=== PATIENT | female | born 1950 | race Caucasian/White ===

== ENCOUNTER 2016-11-21 20:14 | Inpatient (IN) ==
[2016-11-21] MEDS ORDERED: Acetaminophen 325 MG TABLET PO PRN (23:01)
[2016-11-21] MEDS ORDERED: Loratadine 10 MG TABLET PO PRN (23:01)
[2016-11-21] MEDS ORDERED: LOPERAMIDE HCL 2 MG PO PRN (23:01)
[2016-11-21] MEDS ORDERED: Fluticasone Propionate Nasal 50 MCG/SPRAY BOTTLE NS PRN (23:01)
[2016-11-22] MEDS: *HR* HYDROcodone/Acet 5/325 mg TABLET PO PRN ×2 (01:08→10:20)
[2016-11-22] MEDS ORDERED: Gabapentin 300 MG CAPSULE PO ONE (03:23)
[2016-11-22] MEDS ORDERED: Gabapentin 300 MG CAPSULE PO SCH (09:00)
[2016-11-22] MEDS ORDERED: Metoprolol XL (24 HR) Succ 25 MG TAB.ER.24H PO SCH (09:00)
[2016-11-22] MEDS: Multivit/Ca/Min/Fe/FA 1 TAB TABLET PO SCH (10:20)
[2016-11-22] MEDS: Ascorbic Acid 500 MG TABLET PO SCH (10:20)
[2016-11-22] MEDS: Venlafaxine XR (24 HR) 150 MG CAP.ER.24H PO SCH (10:20)
[2016-11-22] MEDS: *HR* Pioglitazone 15 MG TABLET PO SCH (10:21)
[2016-11-22] MEDS: *HR* Metformin 500 MG TABLET PO SCH ×3 (10:21→17:19)
[2016-11-22] MEDS: *HR* Rivaroxaban 15 MG TABLET PO SCH ×2 (10:21→21:56)
[2016-11-22] MEDS: Magnesium Oxide 400 MG TABLET PO SCH (10:21)
[2016-11-22] MEDS: Vitamin B Complex/Vit C/Vit E 1 EACH TABLET PO SCH (10:21)
[2016-11-22] MEDS: GuaiFENesin/Dextromethorphan TABLET PO PRN (10:33)
[2016-11-22] MEDS: Diltiazem CD (24hr) 120 MG CAPSULE PO SCH (13:29)
--- NOTE | 2016-11-22 15:04 | Internal Med History&Physical ---
Date of Encounter: 11/22/16 Time of Encounter: 14:25 Assessment and Plan (1) Atrial flutter Current visit: No Status: Acute Now converted to normal sinus rhythm. Will continue with Cardizem and Xarelto but increase metoprolol. Qualifiers: Atrial flutter type: unspecified Qualified Code(s): I48.92 - Unspecified atrial flutter (2) Type 2 diabetes mellitus Current visit: No Status: Chronic Hemoglobin A1c was 6.2% on 10/31/2016. Continue Actos, Glucophage, Levemir, and Cozaar. Qualifiers: Diabetes mellitus complication status: with neurologic complications Diabetes mellitus complication detail: with polyneuropathy Diabetes mellitus terminal operations manager insulin use: with terminal operations manager use Qualified Code(s): E11.42 - Type 2 diabetes mellitus with diabetic polyneuropathy; Z79.4 - meterman (current) use of insulin (3) Pulmonary embolism Current visit: No Status: Acute Continue Xarelto Qualifiers: Pulmonary embolism type: other Chronicity: acute Acute cor pulmonale presence: without acute cor pulmonale Qualified Code(s): I26.99 - Other pulmonary embolism without acute cor pulmonale (4) Anemia Current visit: No Status: Chronic Anemia workup October 2016 showed iron deficiency. Will recheck iron profile in a.m. Qualifiers: Anemia type: iron deficiency Iron deficiency anemia type: unspecified iron deficiency Qualified Code(s): D50.9 - Iron deficiency anemia, unspecified Internal Medicine - H&P: HPI Chief complaint: Falls, atrial flutter Admitted From: Hospital to Hospital Transfer Plans for Post Hospital Care: Home History of present illness: Ms. Paris is a 66 year old female who was transferred to [facility] swing bed following her third admission at [facility] in the last month. She had had recurrent atrial flutter with RVR and had a fall at home. She was stabilized and admitted to [facility] swing bed for rehabilitation therapy prior to returning home. Her cardiovascular history is significant for hypertension. She denies MT or heart failure. An echocardiogram done during her initial [facility] hospitalization showed LVEF of 60%. She had pulmonary embolism documented on her initial stay and is now on Xarelto. Past Med Surg Social Fam HX - Past Medical History Medical history: arthritis, diabetes, GERD, hypertension, other Psychiatric history: anxiety, depression - Past Surgical History Surgical History: appendectomy, sinus surgery, bariatric surgery - Social History Smoking Status: Never smoker Smokeless Tobacco Status: No Alcohol use: none Drug use: none - Family History Mother Living Status: Hx Family Neurologic Disorders: Yes (Migraines) Hx Family Autoimmune Disorders: Yes (MS) Sister Hx Family Cancer: Yes Hx Family Autoimmune Disorders: Yes (Lupus) Father Living Status: Hx Family Cancer: Yes Hx Family Endocrine Disorder: Yes (diabetes) Internal Medicine - H&P: Meds Acetaminophen [Tylenol Arthritis] 1,300 mg PO Q8H PRN 10/31/16 [History] Cetirizine HCl [Zyrtec] 10 mg PO DAILY PRN 10/31/16 [History] Citalopram [CeleXA] 20 mg PO DAILY 10/31/16 [History] Diclofenac Sodium [Voltaren] 75 mg PO BID 10/31/16 [History] Esomeprazole Magnesium [Nexium] 40 mg PO DAILY 10/31/16 [History] Fluticasone Propionate Nasal [Flonase] 50 mcg NS DAILY PRN 10/31/16 [History] GuaiFENesin/Dextromethorphan [Mucinex Dm] 1 each PO BID PRN 10/31/16 [History] Loperamide HCl [Imodium A-D] 2 mg PO PER PKG DI PRN 10/31/16 [History] Losartan Potassium [Cozaar] 50 mg PO DAILY 10/31/16 [History] Magnesium 250 mg PO DAILY 10/31/16 [History] Multivitamin [Multi-Day Vitamins] 1 each PO DAILY 10/31/16 [History] Pioglitazone [Actos] 45 mg PO 0800 10/31/16 [History] Venlafaxine XR (24 HR) [Effexor Xr] 300 mg PO QAM 10/31/16 [History] Vitamin B Complex 1 each PO DAILY 10/31/16 [History] metFORMIN [Glucophage] 500 mg PO TIDWM 10/31/16 [History] Ascorbic Acid [Vitamin C] 500 mg PO DAILY #30 tablet 11/04/16 [Rx] Ferrous Sulfate 325 mg PO BIDWM #60 tablet 11/04/16 [Rx] Insulin Glargine,Hum.rec.anlog [Lantus Solostar] 50 unit SQ HS #0 11/04/16 [Rx] Diltiazem CD (24hr) [Cardizem CD] 120 mg PO DAILY 30 Days 11/18/16 [Rx] Gabapentin [Neurontin] 300 mg PO BID #30 capsule 11/21/16 [Rx] HYDROcodone/Acet 5/325 mg [[place] 5-325 mg] 1 tab PO Q6H PRN #14 tablet 11/21/16 [Rx] Metoprolol XL (24 HR) Succ [Toprol Xl] 25 mg PO DAILY #30 tab.er.24h 11/21/16 [ Rx] Rivaroxaban [Xarelto] 15 mg PO BID #0 tablet 11/21/16 [Rx] Rivaroxaban [Xarelto] 20 mg PO DAILY #30 tablet 11/21/16 [Rx] Allergies Penicillins Adverse Reaction (Verified 10/31/16 14:05) Gastrointestinal Upset shellfish derived Adverse Reaction (Verified 10/31/16 14:05) Headache Tetracyclines Adverse Reaction (Verified 10/31/16 14:05) Rash All Systems PM: A 10-system review of systems was performed and is negative for pertinent findings except as documented above in the HPI. Review of systems: Gen.: She states her weight has fluctuated depending on fluid retention with her usual adult weight approximately 340 pounds. Cardiovascular: As per history of present illness Respiratory: She is a lifelong nonsmoker. She is been diagnosed with chronic bronchitis. She has been diagnosed with sleep apnea but states it is not benefited by CPAP. GI: She has GERD but denies disorders of her liver gallbladder or exocrine pancreas. She had gastric stapling surgery in the past with weight loss approximately 35 pounds. 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 She has diagnoses of tremor. She has diabetic peripheral neuropathy. She denies large distribution strokes or seizures Endocrine: She was diagnosed with DM 2 approximately 20 years ago. She denies thyroid disease or hyperlipidemia Hematology/oncology: She has iron deficiency anemia and is now on ferrous sulfate with vitamin C. She denies internal malignancies or other blood disorders Psychiatric: She has diagnoses of anxiety depression and dysphoria. [place] skeletal: She has DJD. She has been receiving Synvisc injections into her knees. She denies other bone joint or muscle disorders. - Constitutional Vitals: Temp Pulse Resp BP Pulse Ox 98.5 F 84 14 147/75 99 11/22/16 06:10 11/22/16 14:35 11/22/16 14:35 11/22/16 14:35 11/22/16 14:35 Exam: Gen.: She is a well-developed morbidly obese female lying in bed who appears in no severe distress HEENT: Head is atraumatic and normocephalic. Eyes: EOMI. There is no scleral icterus. Mouth: Mucosa is moist. Neck: Supple and nontender. There is no thyromegaly or adenopathy noted. Heart: Regular without murmurs gallops or ectopics Lungs: No wheezes or crackles are heard. Abdomen: She has a large abdomen. There is a well-healed midline longitudinal incision. No masses or guarding are noted. She has ecchymosis of the lower abdominal wall. Extremities: She has 1-2+ edema of the dorsum of the feet. She has marked adiposity of her legs. Dorsalis pedis and posterior tibial pulses are not palpable. Neurologic: Mental status: She is talkative and a good historian. Cranial nerves: Smile is symmetric. Forehead wrinkles bilaterally. Tongue protrudes midline. EOMI. Motor: There is no pronator drift. Cerebellar: Finger to nose is intact bilaterally. Skin: Warm and dry
[2016-11-22] MEDS ORDERED: Insulin DETEMIR 100 UNIT/ML per UNIT SQ SCH (21:00)
[2016-11-22] MEDS ORDERED: Insulin DETEMIR 100 UNIT/ML X5UNITS SQ SCH (21:00)
[2016-11-22] MEDS: *HR* HYDROcodone/Acet 10/325 mg TABLET PO PRN (21:56)
[2016-11-23] MEDS: *HR* HYDROcodone/Acet 10/325 mg TABLET PO PRN ×4 (03:02→17:24)
[2016-11-23 07:51] LABS: Basophils # 0.1 K/mcL (0.0-0.2); Basophils % 1.2 %; Eosinophils # 0.2 K/mcL (0.0-0.6); Eosinophils % 5.6 %; Hematocrit 29.5 % (35.3-44.9); Hemoglobin 8.6 g/dL (11.5-15.4); Immature Granulocytes % 0.2 % (0-4); Lymphocytes # 1.2 K/mcL (0.6-4.6); Lymphocytes % 28.3 %; Mean Corpuscular HGB Conc 29.2 g/dL (31.6-35.5); Mean Corpuscular Volume 85.8 fL (83.0-100.0); Mean Platelet Volume 9.4 fL (9.4-12.4); Monocytes # 0.5 K/mcL (0.0-1.3); Monocytes % 11.8 %; Neutrophils # 2.3 K/mcL (1.6-8.9); Platelet Count 318 K/mcL (140-400); Red Blood Count 3.44 M/mcL (3.82-4.97); Red Cell Distribution Width 24.1 % (11.5-14.5); Segmented Neutrophils % 52.9 %
[2016-11-23] MEDS: Ascorbic Acid 500 MG TABLET PO SCH (08:05)
[2016-11-23] MEDS: Vitamin B Complex/Vit C/Vit E 1 EACH TABLET PO SCH (08:06)
[2016-11-23] MEDS: Diltiazem CD (24hr) 120 MG CAPSULE PO SCH (08:06)
[2016-11-23] MEDS: Magnesium Oxide 400 MG TABLET PO SCH (08:06)
[2016-11-23] MEDS: *HR* Metformin 500 MG TABLET PO SCH ×3 (08:06→17:24)
[2016-11-23] MEDS: *HR* Rivaroxaban 15 MG TABLET PO SCH ×2 (08:06→20:11)
[2016-11-23] MEDS: *HR* Pioglitazone 15 MG TABLET PO SCH (08:07)
[2016-11-23] MEDS: Metoprolol XL (24 HR) Succ 25 MG TAB.ER.24H PO SCH (08:07)
[2016-11-23] MEDS: Venlafaxine XR (24 HR) 150 MG CAP.ER.24H PO SCH (08:07)
[2016-11-23] MEDS: GuaiFENesin/Dextromethorphan TABLET PO PRN ×2 (08:13→20:24)
[2016-11-23] MEDS: Multivit/Ca/Min/Fe/FA 1 TAB TABLET PO SCH (08:13)
[2016-11-23 08:44] LABS: Anisocytosis 1+ (Not Present); Hypochromasia Present (Not Present); Polychromasia 1+ (Not Present)
[2016-11-23 13:31] LABS: % Iron Saturation 11 % (15-50); Iron 43 mcg/dL (50-170); Transferrin 287 mg/dL (180-382)
[2016-11-23 13:51] LABS: Ferritin 60 ng/ml (5-204)
--- NOTE | 2016-11-23 17:38 | Internal Med Progress Note ---
Date of Encounter: 11/23/16 Time of Encounter: 17:30 - Assessment and plan (1) Atrial flutter Current Visit: No Status: Acute Assessment and plan: November 23. Continue Cardizem, metoprolol, and Xarelto Qualifiers: Atrial flutter type: unspecified Qualified Code(s): I48.92 - Unspecified atrial flutter (2) Type 2 diabetes mellitus Current Visit: No Status: Chronic Assessment and plan: November 23. Hemoglobin A1c was 6.2% on 10/31/2016. Continue Actos, Glucophage, Levemir, and Cozaar. Qualifiers: Diabetes mellitus complication status: with neurologic complications Diabetes mellitus complication detail: with polyneuropathy Diabetes mellitus buttermilk drier operator insulin use: with buttermilk drier operator use Qualified Code(s): E11.42 - Type 2 diabetes mellitus with diabetic polyneuropathy; Z79.4 - assistant terminal manager (current) use of insulin (3) Pulmonary embolism Current Visit: No Status: Acute Assessment and plan: November 23. Continue Xarelto Qualifiers: Pulmonary embolism type: other Chronicity: acute Acute cor pulmonale presence: without acute cor pulmonale Qualified Code(s): I26.99 - Other pulmonary embolism without acute cor pulmonale (4) Anemia Current Visit: No Status: Chronic Assessment and plan: November 23. Improved from November 12 labs. Continue ferrous sulfate with vitamin C. Qualifiers: Anemia type: iron deficiency Iron deficiency anemia type: unspecified iron deficiency Qualified Code(s): D50.9 - Iron deficiency anemia, unspecified - Subjective Interval history: November 23. She has no new complaints except she felt she was left sitting in a low chair excessively long today. - Constitutional Vitals: Temp Pulse Resp BP Pulse Ox 98.0 F 77 16 158/76 98 11/23/16 06:55 11/23/16 06:55 11/23/16 06:55 11/23/16 06:55 11/23/16 06:55 Exam: She is resting comfortably in bed appears in no acute distress. Her affect was overall cheerful. I reviewed her medications and lab results. Internal Medicine: Result - Labs CBC & Chem 7: 11/23/16 07:45 Labs: Short CBC 11/23/16 Range/Units 07:45 WBC 4.3 (4.3-11.1) K/mcL Hgb 8.6 L (11.5-15.4) g/dL Hct 29.5 L (35.3-44.9) % Plt Count 318 (140-400) K/mcL Neutrophils # 2.3 (1.6-8.9) K/mcL Consult Discharge Plan - Plan Referrals: Agustin Whatley MD [Primary Care Provider] - 1 week
[2016-11-23] MEDS: Insulin DETEMIR 100 UNIT/ML X5UNITS SQ SCH (20:11)
[2016-11-24] MEDS: *HR* HYDROcodone/Acet 10/325 mg TABLET PO PRN ×3 (01:30→18:08)
[2016-11-24] MEDS: *HR* Pioglitazone 15 MG TABLET PO SCH ×2 (07:53→12:20)
[2016-11-24] MEDS: Venlafaxine XR (24 HR) 150 MG CAP.ER.24H PO SCH (07:55)
[2016-11-24] MEDS: Multivit/Ca/Min/Fe/FA 1 TAB TABLET PO SCH (07:56)
[2016-11-24] MEDS: Ascorbic Acid 500 MG TABLET PO SCH (07:56)
[2016-11-24] MEDS: Magnesium Oxide 400 MG TABLET PO SCH (07:56)
[2016-11-24] MEDS: Vitamin B Complex/Vit C/Vit E 1 EACH TABLET PO SCH (07:56)
[2016-11-24] MEDS: *HR* Metformin 500 MG TABLET PO SCH ×3 (07:56→18:06)
[2016-11-24] MEDS: Diltiazem CD (24hr) 120 MG CAPSULE PO SCH (07:56)
[2016-11-24] MEDS: Metoprolol XL (24 HR) Succ 25 MG TAB.ER.24H PO SCH (07:56)
[2016-11-24] MEDS: *HR* Rivaroxaban 15 MG TABLET PO SCH ×2 (07:57→21:47)
[2016-11-24] MEDS: Insulin DETEMIR 100 UNIT/ML X5UNITS SQ SCH (21:46)
[2016-11-25] MEDS: *HR* HYDROcodone/Acet 10/325 mg TABLET PO PRN ×3 (00:25→22:00)
[2016-11-25] MEDS: *HR* Pioglitazone 15 MG TABLET PO SCH (09:12)
[2016-11-25] MEDS: Diltiazem CD (24hr) 120 MG CAPSULE PO SCH (09:14)
[2016-11-25] MEDS: *HR* Metformin 500 MG TABLET PO SCH ×3 (09:14→17:11)
[2016-11-25] MEDS: Venlafaxine XR (24 HR) 150 MG CAP.ER.24H PO SCH (09:15)
[2016-11-25] MEDS: Vitamin B Complex/Vit C/Vit E 1 EACH TABLET PO SCH (09:16)
[2016-11-25] MEDS: Multivit/Ca/Min/Fe/FA 1 TAB TABLET PO SCH (09:16)
[2016-11-25] MEDS: Magnesium Oxide 400 MG TABLET PO SCH (09:16)
[2016-11-25] MEDS: Metoprolol XL (24 HR) Succ 25 MG TAB.ER.24H PO SCH (09:17)
[2016-11-25] MEDS: Ascorbic Acid 500 MG TABLET PO SCH (09:17)
[2016-11-25] MEDS: *HR* Rivaroxaban 15 MG TABLET PO SCH (09:17)
[2016-11-25] MEDS: Insulin DETEMIR 100 UNIT/ML X5UNITS SQ SCH (21:59)
[2016-11-26] MEDS: *HR* HYDROcodone/Acet 10/325 mg TABLET PO PRN ×2 (02:13→06:33)
[2016-11-26] MEDS: Diltiazem CD (24hr) 120 MG CAPSULE PO SCH (08:40)
[2016-11-26] MEDS: *HR* Pioglitazone 15 MG TABLET PO SCH (08:40)
[2016-11-26] MEDS: Metoprolol XL (24 HR) Succ 25 MG TAB.ER.24H PO SCH (08:40)
[2016-11-26] MEDS: Ascorbic Acid 500 MG TABLET PO SCH (08:40)
[2016-11-26] MEDS: Venlafaxine XR (24 HR) 150 MG CAP.ER.24H PO SCH (08:40)
[2016-11-26] MEDS: *HR* Metformin 500 MG TABLET PO SCH ×3 (08:40→17:49)
[2016-11-26] MEDS: *HR* Rivaroxaban 10 MG TABLET PO SCH (08:40)
[2016-11-26] MEDS: Vitamin B Complex/Vit C/Vit E 1 EACH TABLET PO SCH (08:40)
[2016-11-26] MEDS: Magnesium Oxide 400 MG TABLET PO SCH (08:40)
[2016-11-26] MEDS: Multivit/Ca/Min/Fe/FA 1 TAB TABLET PO SCH (08:40)
--- NOTE | 2016-11-26 11:19 | Internal Med Progress Note ---
Date of Encounter: 11/26/16 Time of Encounter: 10:20 - Assessment and plan (1) Atrial flutter Current Visit: No Status: Acute Assessment and plan: November 23. Continue Cardizem, metoprolol, and Xarelto Qualifiers: Atrial flutter type: unspecified Qualified Code(s): I48.92 - Unspecified atrial flutter (2) Type 2 diabetes mellitus Current Visit: No Status: Chronic Assessment and plan: November 23. Hemoglobin A1c was 6.2% on 10/31/2016. Continue Actos, Glucophage, Levemir, and Cozaar. November 26. Blood sugars are satisfactory. Continue present regimen Qualifiers: Diabetes mellitus complication status: with neurologic complications Diabetes mellitus complication detail: with polyneuropathy Diabetes mellitus terminal superintendent insulin use: with custodial use Qualified Code(s): E11.42 - Type 2 diabetes mellitus with diabetic polyneuropathy; Z79.4 - terminal superintendent (current) use of insulin (3) Pulmonary embolism Current Visit: No Status: Acute Assessment and plan: November 23. Continue Xarelto Qualifiers: Pulmonary embolism type: other Chronicity: acute Acute cor pulmonale presence: without acute cor pulmonale Qualified Code(s): I26.99 - Other pulmonary embolism without acute cor pulmonale (4) Anemia Current Visit: No Status: Chronic Assessment and plan: November 23. Improved from November 12 labs. Continue ferrous sulfate with vitamin C. Qualifiers: Anemia type: iron deficiency Iron deficiency anemia type: unspecified iron deficiency Qualified Code(s): D50.9 - Iron deficiency anemia, unspecified (5) Leg cramps Current Visit: Yes Status: Acute Assessment and plan: November 26. Will decrease [place] and prescribe Lyrica. Continue ferrous sulfate with vitamin C. - Subjective Interval history: November 23. She has no new complaints except she felt she was left sitting in a low chair excessively long today. November 26. She complains of leg cramps and occasional jerking of her arms. She reported she desires more specific goals for therapy on a daily basis. She inquired about mental health counseling. - Constitutional Vitals: Temp Pulse Resp BP Pulse Ox 97.8 F 80 22 124/63 95 11/26/16 06:35 11/26/16 06:35 11/26/16 06:35 11/26/16 06:35 11/26/16 06:35 Exam: She appears in no acute distress lying in bed. Her affect is overall bright and cheerful. I reviewed her medications and lab results Internal Medicine: Result - Labs CBC & Chem 7: 11/23/16 07:45 Consult Discharge Plan - Plan Referrals: Agustin Whatley MD [Primary Care Provider] - 1 week
[2016-11-26] MEDS ORDERED: Acetaminophen 325 MG TABLET PO PRN (11:28)
[2016-11-26] MEDS: *HR* HYDROcodone/Acet 5/325 mg TABLET PO PRN ×2 (14:34→22:15)
[2016-11-26] MEDS: Pregabalin 50 MG CAPSULE PO SCH ×2 (14:35→20:38)
[2016-11-26] MEDS: Insulin DETEMIR 100 UNIT/ML X5UNITS SQ SCH (20:38)
[2016-11-26] MEDS: GuaiFENesin/Dextromethorphan TABLET PO PRN (20:44)
[2016-11-27] MEDS: *HR* HYDROcodone/Acet 5/325 mg TABLET PO PRN ×4 (05:08→21:28)
[2016-11-27 05:29] LABS: Basophils % 1.2 %; Eosinophils # 0.2 K/mcL (0.0-0.6); Eosinophils % 5.5 %; Hemoglobin 8.3 g/dL (11.5-15.4); Immature Granulocytes % 0.3 % (0-4); Lymphocytes # 0.8 K/mcL (0.6-4.6); Lymphocytes % 23.5 %; Mean Corpuscular HGB Conc 28.6 g/dL (31.6-35.5); Mean Corpuscular Volume 87.3 fL (83.0-100.0); Mean Platelet Volume 10.3 fL (9.4-12.4); Monocytes # 0.5 K/mcL (0.0-1.3); Monocytes % 14.5 %; Neutrophils # 1.9 K/mcL (1.6-8.9); Platelet Count 244 K/mcL (140-400); Red Blood Count 3.32 M/mcL (3.82-4.97); Red Cell Distribution Width 23.8 % (11.5-14.5)
[2016-11-27 05:47] LABS: BUN/Creatinine Ratio 26 (6-26); Blood Urea Nitrogen 18 mg/dL (7-20); Calcium 9.3 mg/dL (8.6-10.8); Carbon Dioxide 29 mEq/L (19-29); Chloride 96 mEq/L (98-109); Glucose 117 mg/dL (70-99); Magnesium 1.5 mg/dL (1.6-2.6); Osmolality,Calculated 281 (280-300); Potassium 4.5 mEq/L (3.5-4.5); Sodium 134 mEq/L (136-145); eGFR For African Americans > 60 (> 60); eGFR For Non-African Americans > 60 (> 60)
[2016-11-27 06:44] LABS: Anisocytosis 1+ (Not Present); Hypochromasia Present (Not Present); Platelet Estimate Normal (Normal)
[2016-11-27] MEDS: *HR* Rivaroxaban 10 MG TABLET PO SCH ×2 (10:01→17:44)
[2016-11-27] MEDS: *HR* Pioglitazone 15 MG TABLET PO SCH (10:11)
[2016-11-27] MEDS: *HR* Metformin 500 MG TABLET PO SCH ×3 (10:12→17:44)
[2016-11-27] MEDS: Magnesium Oxide 400 MG TABLET PO SCH (10:12)
[2016-11-27] MEDS: Multivit/Ca/Min/Fe/FA 1 TAB TABLET PO SCH (10:12)
[2016-11-27] MEDS: Diltiazem CD (24hr) 120 MG CAPSULE PO SCH (10:12)
[2016-11-27] MEDS: Venlafaxine XR (24 HR) 150 MG CAP.ER.24H PO SCH (10:12)
[2016-11-27] MEDS: Vitamin B Complex/Vit C/Vit E 1 EACH TABLET PO SCH (10:13)
[2016-11-27] MEDS: Ascorbic Acid 500 MG TABLET PO SCH (10:13)
[2016-11-27] MEDS: Metoprolol XL (24 HR) Succ 25 MG TAB.ER.24H PO SCH (10:13)
[2016-11-27] MEDS: Pregabalin 50 MG CAPSULE PO SCH (10:13)
[2016-11-27] MEDS: GuaiFENesin/Dextromethorphan TABLET PO PRN ×2 (10:20→20:36)
[2016-11-27] MEDS ORDERED: *HR* HYDROcodone/Acet 5/325 mg TABLET PO PRN (18:50)
[2016-11-27] MEDS: Gabapentin 300 MG CAPSULE PO SCH (20:36)
[2016-11-27] MEDS: Insulin DETEMIR 100 UNIT/ML X5UNITS SQ SCH (20:36)
[2016-11-28] MEDS: *HR* HYDROcodone/Acet 5/325 mg TABLET PO PRN ×5 (04:01→21:07)
[2016-11-28] MEDS: *HR* Pioglitazone 15 MG TABLET PO SCH (09:14)
[2016-11-28] MEDS: Ascorbic Acid 500 MG TABLET PO SCH (09:15)
[2016-11-28] MEDS: Vitamin B Complex/Vit C/Vit E 1 EACH TABLET PO SCH (09:15)
[2016-11-28] MEDS: Multivit/Ca/Min/Fe/FA 1 TAB TABLET PO SCH (09:15)
[2016-11-28] MEDS: GuaiFENesin/Dextromethorphan TABLET PO PRN ×2 (09:15→21:07)
[2016-11-28] MEDS: Magnesium Oxide 400 MG TABLET PO SCH (09:15)
[2016-11-28] MEDS: Gabapentin 300 MG CAPSULE PO SCH ×2 (09:16→21:04)
[2016-11-28] MEDS: *HR* Metformin 500 MG TABLET PO SCH ×3 (09:16→17:32)
[2016-11-28] MEDS: Venlafaxine XR (24 HR) 150 MG CAP.ER.24H PO SCH (09:16)
[2016-11-28] MEDS: Diltiazem CD (24hr) 120 MG CAPSULE PO SCH (09:16)
[2016-11-28] MEDS: Metoprolol XL (24 HR) Succ 25 MG TAB.ER.24H PO SCH (09:16)
--- NOTE | 2016-11-28 15:22 | Internal Med Progress Note ---
Date of Encounter: 11/28/16 Time of Encounter: 15:10 - Assessment and plan (1) Atrial flutter Current Visit: No Status: Acute Assessment and plan: November 23. Continue Cardizem, metoprolol, and Xarelto Qualifiers: Atrial flutter type: unspecified Qualified Code(s): I48.92 - Unspecified atrial flutter (2) Type 2 diabetes mellitus Current Visit: No Status: Chronic Assessment and plan: November 23. Hemoglobin A1c was 6.2% on 10/31/2016. Continue Actos, Glucophage, Levemir, and Cozaar. November 26. Blood sugars are satisfactory. Continue present regimen Qualifiers: Diabetes mellitus complication status: with neurologic complications Diabetes mellitus complication detail: with polyneuropathy Diabetes mellitus manager long term care insulin use: with manager long term care use Qualified Code(s): E11.42 - Type 2 diabetes mellitus with diabetic polyneuropathy; Z79.4 - exterminator helper (current) use of insulin (3) Pulmonary embolism Current Visit: No Status: Acute Assessment and plan: November 23. Continue Xarelto Qualifiers: Pulmonary embolism type: other Chronicity: acute Acute cor pulmonale presence: without acute cor pulmonale Qualified Code(s): I26.99 - Other pulmonary embolism without acute cor pulmonale (4) Anemia Current Visit: No Status: Chronic Assessment and plan: November 23. Improved from November 12 labs. Continue ferrous sulfate with vitamin C. November 28. Hemoglobin decreased slightly to 8.3 on 11/27/2016. Continue to monitor CBC Qualifiers: Anemia type: iron deficiency Iron deficiency anemia type: unspecified iron deficiency Qualified Code(s): D50.9 - Iron deficiency anemia, unspecified (5) Leg cramps Current Visit: Yes Status: Acute Assessment and plan: November 26. Will decrease [place] and prescribe Lyrica. Continue ferrous sulfate with vitamin C. November 28. She did not tolerate decreased [place]. She wished to change from Lyrica to Neurontin. We will continue present regimen. - Subjective Interval history: November 23. She has no new complaints except she felt she was left sitting in a low chair excessively long today. November 26. She complains of leg cramps and occasional jerking of her arms. She reported she desires more specific goals for therapy on a daily basis. She inquired about mental health counseling. November 28. She reports decreased legs cramp and arm jerking. She will see Dr. Butt this afternoon for Synvisc injection - Constitutional Vitals: Temp Pulse Resp BP Pulse Ox 97.6 F 78 18 141/59 92 11/28/16 06:30 11/28/16 06:30 11/28/16 06:30 11/28/16 06:30 11/28/16 06:30 Exam: She is resting in bed and appears in no acute distress. I reviewed her medications and lab results. Internal Medicine: Result - Labs CBC & Chem 7: 11/27/16 04:57 11/27/16 04:57 Consult Discharge Plan - Plan Referrals: Agustin Whatley MD [Primary Care Provider] - 1 week (Patient also needs a follow up appointment made with core manager the first week of December.)
[2016-11-28] MEDS: *HR* Rivaroxaban 10 MG TABLET PO SCH (17:32)
[2016-11-28] MEDS: Insulin DETEMIR 100 UNIT/ML X5UNITS SQ SCH (21:07)
[2016-11-29] MEDS: *HR* HYDROcodone/Acet 5/325 mg TABLET PO PRN ×4 (01:33→21:49)
[2016-11-29] MEDS: Venlafaxine XR (24 HR) 150 MG CAP.ER.24H PO SCH (08:13)
[2016-11-29] MEDS: *HR* Pioglitazone 15 MG TABLET PO SCH (08:13)
[2016-11-29] MEDS: Magnesium Oxide 400 MG TABLET PO SCH (08:14)
[2016-11-29] MEDS: Ascorbic Acid 500 MG TABLET PO SCH (08:14)
[2016-11-29] MEDS: Multivit/Ca/Min/Fe/FA 1 TAB TABLET PO SCH (08:14)
[2016-11-29] MEDS: Vitamin B Complex/Vit C/Vit E 1 EACH TABLET PO SCH (08:14)
[2016-11-29] MEDS: Metoprolol XL (24 HR) Succ 25 MG TAB.ER.24H PO SCH (08:14)
[2016-11-29] MEDS: *HR* Metformin 500 MG TABLET PO SCH ×3 (08:14→17:42)
[2016-11-29] MEDS: Gabapentin 300 MG CAPSULE PO SCH ×2 (08:14→21:49)
[2016-11-29] MEDS: Diltiazem CD (24hr) 120 MG CAPSULE PO SCH (08:15)
[2016-11-29] MEDS: GuaiFENesin/Dextromethorphan TABLET PO PRN ×2 (08:21→21:37)
--- NOTE | 2016-11-29 14:33 | Internal Med Progress Note ---
Date of Encounter: 11/29/16 Time of Encounter: 14:15 - Assessment and plan (1) Atrial flutter Current Visit: No Status: Acute Assessment and plan: November 23. Continue Cardizem, metoprolol, and Xarelto Qualifiers: Atrial flutter type: unspecified Qualified Code(s): I48.92 - Unspecified atrial flutter (2) Type 2 diabetes mellitus Current Visit: No Status: Chronic Assessment and plan: November 23. Hemoglobin A1c was 6.2% on 10/31/2016. Continue Actos, Glucophage, Levemir, and Cozaar. November 26. Blood sugars are satisfactory. Continue present regimen Qualifiers: Diabetes mellitus complication status: with neurologic complications Diabetes mellitus complication detail: with polyneuropathy Diabetes mellitus terminal press operator insulin use: with nursing home use Qualified Code(s): E11.42 - Type 2 diabetes mellitus with diabetic polyneuropathy; Z79.4 - emt intermediate (current) use of insulin (3) Pulmonary embolism Current Visit: No Status: Acute Assessment and plan: November 23. Continue Xarelto Qualifiers: Pulmonary embolism type: other Chronicity: acute Acute cor pulmonale presence: without acute cor pulmonale Qualified Code(s): I26.99 - Other pulmonary embolism without acute cor pulmonale (4) Anemia Current Visit: No Status: Chronic Assessment and plan: November 23. Improved from November 12 labs. Continue ferrous sulfate with vitamin C. November 28. Hemoglobin decreased slightly to 8.3 on 11/27/2016. Continue to monitor CBC November 29. Will recheck labs in a.m. Qualifiers: Anemia type: iron deficiency Iron deficiency anemia type: unspecified iron deficiency Qualified Code(s): D50.9 - Iron deficiency anemia, unspecified (5) Leg cramps Current Visit: Yes Status: Acute Assessment and plan: November 26. Will decrease [place] and prescribe Lyrica. Continue ferrous sulfate with vitamin C. November 28. She did not tolerate decreased [place]. She wished to change from Lyrica to Neurontin. We will continue present regimen. November 29. Recheck labs in a.m. - Subjective Interval history: November 23. She has no new complaints except she felt she was left sitting in a low chair excessively long today. November 26. She complains of leg cramps and occasional jerking of her arms. She reported she desires more specific goals for therapy on a daily basis. She inquired about mental health counseling. November 28. She reports decreased legs cramp and arm jerking. She will see Dr. Butt this afternoon for Synvisc injection November 29. She has no new complaints. She reports slightly improved but persistent leg cramps. She states she has had progressive DPN pain over the past few weeks to months. She did not receive Synvisc injection yesterday since her wheelchair could not fit through the office door at the physician's office. - Constitutional Vitals: Temp Pulse Resp BP Pulse Ox 97.8 F 68 18 113/43 97 11/29/16 06:44 11/29/16 06:44 11/29/16 06:44 11/29/16 06:44 11/29/16 09:03 Exam: She is lying in bed and appears in no acute distress. I was accompanied by Ainsley PEÑA we informed the patient her progress was not sufficient to continue to qualify her for swing bed stay. Internal Medicine: Result - Labs CBC & Chem 7: 11/27/16 04:57 11/27/16 04:57 Consult Discharge Plan - Plan Referrals: Agustin Whatley MD [Primary Care Provider] - 1 week (Patient also needs a follow up appointment made with plush weaver the first week of December.)
[2016-11-29] MEDS: *HR* Rivaroxaban 10 MG TABLET PO SCH (17:42)
[2016-11-29] MEDS: Insulin DETEMIR 100 UNIT/ML X5UNITS SQ SCH (21:37)
[2016-11-30 05:50] LABS: Basophils # 0.1 K/mcL (0.0-0.2); Eosinophils # 0.4 K/mcL (0.0-0.6); Eosinophils % 6.1 %; Hematocrit 31.3 % (35.3-44.9); Hemoglobin 9.2 g/dL (11.5-15.4); Immature Granulocytes % 0.3 % (0-4); Lymphocytes # 1.3 K/mcL (0.6-4.6); Lymphocytes % 23.2 %; Mean Corpuscular HGB Conc 29.4 g/dL (31.6-35.5); Mean Corpuscular Hemoglobin 25.6 pg (28.0-33.3); Mean Corpuscular Volume 86.9 fL (83.0-100.0); Mean Platelet Volume 11.2 fL (9.4-12.4); Monocytes # 0.7 K/mcL (0.0-1.3); Monocytes % 12.9 %; Neutrophils # 3.2 K/mcL (1.6-8.9); Platelet Count 246 K/mcL (140-400); Red Cell Distribution Width 23.3 % (11.5-14.5); Segmented Neutrophils % 56.5 %
[2016-11-30 06:03] LABS: Alanine Aminotransferase 20 Units/L (0-55); Albumin 3.1 g/dL (3.5-5.0); Alkaline Phosphatase 116 Units/L (38-126); Aspartate Amino Transferase 35 Units/L (5-34); BUN/Creatinine Ratio 33 (6-26); Bilirubin,Total 0.4 mg/dL (0.2-1.2); Blood Urea Nitrogen 26 mg/dL (7-20); Calcium 9.5 mg/dL (8.6-10.8); Carbon Dioxide 22 mEq/L (19-29); Chloride 98 mEq/L (98-109); Globulin 3.2 g/dL (2.4-3.5); Glucose 97 mg/dL (70-99); Magnesium 1.8 mg/dL (1.6-2.6); Osmolality,Calculated 277 (280-300); Potassium 5.7 mEq/L (3.5-4.5); Sodium 131 mEq/L (136-145); Total Protein 6.3 g/dL (6.0-8.3); eGFR For African Americans > 60 (> 60); eGFR For Non-African Americans > 60 (> 60)
[2016-11-30 06:43] LABS: Anisocytosis 1+ (Not Present)
[2016-11-30 06:44] LABS: Platelet Estimate Normal (Normal)
[2016-11-30] MEDS: *HR* HYDROcodone/Acet 5/325 mg TABLET PO PRN ×2 (07:00→14:31)
[2016-11-30] MEDS: Multivit/Ca/Min/Fe/FA 1 TAB TABLET PO SCH (08:42)
[2016-11-30] MEDS: Metoprolol XL (24 HR) Succ 25 MG TAB.ER.24H PO SCH (08:42)
[2016-11-30] MEDS: *HR* Pioglitazone 15 MG TABLET PO SCH (08:43)
[2016-11-30] MEDS: Venlafaxine XR (24 HR) 150 MG CAP.ER.24H PO SCH (08:43)
[2016-11-30] MEDS: Gabapentin 300 MG CAPSULE PO SCH ×2 (08:43→22:01)
[2016-11-30] MEDS: Magnesium Oxide 400 MG TABLET PO SCH (08:43)
[2016-11-30] MEDS: Ascorbic Acid 500 MG TABLET PO SCH (08:44)
[2016-11-30] MEDS: *HR* Metformin 500 MG TABLET PO SCH ×3 (08:44→18:15)
[2016-11-30] MEDS: Diltiazem CD (24hr) 120 MG CAPSULE PO SCH (08:44)
[2016-11-30] MEDS: Vitamin B Complex/Vit C/Vit E 1 EACH TABLET PO SCH (08:45)
[2016-11-30] MEDS: GuaiFENesin/Dextromethorphan TABLET PO PRN ×2 (08:49→22:01)
[2016-11-30] MEDS: *HR* Rivaroxaban 10 MG TABLET PO SCH (18:14)
[2016-11-30] MEDS: Insulin DETEMIR 100 UNIT/ML X5UNITS SQ SCH (22:01)
[2016-12-01] MEDS: *HR* HYDROcodone/Acet 5/325 mg TABLET PO PRN ×4 (00:33→22:35)
[2016-12-01] MEDS: Magnesium Oxide 400 MG TABLET PO SCH (10:01)
[2016-12-01] MEDS: Multivit/Ca/Min/Fe/FA 1 TAB TABLET PO SCH (10:01)
[2016-12-01] MEDS: Venlafaxine XR (24 HR) 150 MG CAP.ER.24H PO SCH (10:02)
[2016-12-01] MEDS: Metoprolol XL (24 HR) Succ 25 MG TAB.ER.24H PO SCH (10:02)
[2016-12-01] MEDS: *HR* Metformin 500 MG TABLET PO SCH ×3 (10:02→17:02)
[2016-12-01] MEDS: *HR* Pioglitazone 15 MG TABLET PO SCH (10:02)
[2016-12-01] MEDS: Diltiazem CD (24hr) 120 MG CAPSULE PO SCH (10:02)
[2016-12-01] MEDS: Gabapentin 300 MG CAPSULE PO SCH ×2 (10:02→22:35)
[2016-12-01] MEDS: Ascorbic Acid 500 MG TABLET PO SCH (10:02)
[2016-12-01] MEDS: Vitamin B Complex/Vit C/Vit E 1 EACH TABLET PO SCH (10:03)
[2016-12-01] MEDS: GuaiFENesin/Dextromethorphan TABLET PO PRN ×2 (10:09→22:35)
[2016-12-01] MEDS: *HR* Rivaroxaban 10 MG TABLET PO SCH (17:02)
[2016-12-01] MEDS: Insulin DETEMIR 100 UNIT/ML X5UNITS SQ SCH (22:35)
[2016-12-02] MEDS: Multivit/Ca/Min/Fe/FA 1 TAB TABLET PO SCH (08:09)
[2016-12-02] MEDS: Gabapentin 300 MG CAPSULE PO SCH ×2 (08:09→22:01)
[2016-12-02] MEDS: Metoprolol XL (24 HR) Succ 25 MG TAB.ER.24H PO SCH (08:09)
[2016-12-02] MEDS: Vitamin B Complex/Vit C/Vit E 1 EACH TABLET PO SCH (08:09)
[2016-12-02] MEDS: Magnesium Oxide 400 MG TABLET PO SCH (08:09)
[2016-12-02] MEDS: *HR* Metformin 500 MG TABLET PO SCH ×3 (08:10→18:14)
[2016-12-02] MEDS: Venlafaxine XR (24 HR) 150 MG CAP.ER.24H PO SCH (08:10)
[2016-12-02] MEDS: Ascorbic Acid 500 MG TABLET PO SCH (08:10)
[2016-12-02] MEDS: *HR* Pioglitazone 15 MG TABLET PO SCH (08:10)
[2016-12-02] MEDS: Diltiazem CD (24hr) 120 MG CAPSULE PO SCH (08:10)
[2016-12-02] MEDS: *HR* HYDROcodone/Acet 5/325 mg TABLET PO PRN ×3 (08:19→21:59)
[2016-12-02] MEDS: GuaiFENesin/Dextromethorphan TABLET PO PRN ×2 (08:19→21:59)
--- NOTE | 2016-12-02 16:48 | Internal Med Progress Note ---
Date of Encounter: 12/02/16 Time of Encounter: 16:40 - Assessment and plan (1) Atrial flutter Current Visit: No Status: Acute Assessment and plan: November 23. Continue Cardizem, metoprolol, and Xarelto Qualifiers: Atrial flutter type: unspecified Qualified Code(s): I48.92 - Unspecified atrial flutter (2) Type 2 diabetes mellitus Current Visit: No Status: Chronic Assessment and plan: November 23. Hemoglobin A1c was 6.2% on 10/31/2016. Continue Actos, Glucophage, Levemir, and Cozaar. November 26. Blood sugars are satisfactory. Continue present regimen Qualifiers: Diabetes mellitus complication status: with neurologic complications Diabetes mellitus complication detail: with polyneuropathy Diabetes mellitus local company intermodal truck driver insulin use: with prison use Qualified Code(s): E11.42 - Type 2 diabetes mellitus with diabetic polyneuropathy; Z79.4 - watermelon inspector (current) use of insulin (3) Pulmonary embolism Current Visit: No Status: Acute Assessment and plan: November 23. Continue Xarelto Qualifiers: Pulmonary embolism type: other Chronicity: acute Acute cor pulmonale presence: without acute cor pulmonale Qualified Code(s): I26.99 - Other pulmonary embolism without acute cor pulmonale (4) Anemia Current Visit: No Status: Chronic Assessment and plan: November 23. Improved from November 12 labs. Continue ferrous sulfate with vitamin C. November 28. Hemoglobin decreased slightly to 8.3 on 11/27/2016. Continue to monitor CBC November 29. Will recheck labs in a.m. December 02. Hemoglobin improved to 9.2 on 11/30/2016. Will recheck in a.m. Qualifiers: Anemia type: iron deficiency Iron deficiency anemia type: unspecified iron deficiency Qualified Code(s): D50.9 - Iron deficiency anemia, unspecified (5) Leg cramps Current Visit: Yes Status: Acute Assessment and plan: November 26. Will decrease [place] and prescribe Lyrica. Continue ferrous sulfate with vitamin C. November 28. She did not tolerate decreased [place]. She wished to change from Lyrica to Neurontin. We will continue present regimen. November 29. Recheck labs in a.m. December 02. Potassium was elevated at 5.7 with BUN 26 on 11/30/2016. Will recheck labs in a.m. - Subjective Interval history: November 23. She has no new complaints except she felt she was left sitting in a low chair excessively long today. November 26. She complains of leg cramps and occasional jerking of her arms. She reported she desires more specific goals for therapy on a daily basis. She inquired about mental health counseling. November 28. She reports decreased legs cramp and arm jerking. She will see Dr. Butt this afternoon for Synvisc injection November 29. She has no new complaints. She reports slightly improved but persistent leg cramps. She states she has had progressive DPN pain over the past few weeks to months. She did not receive Synvisc injection yesterday since her wheelchair could not fit through the office door at the physician's office. December 02. She has no new complaints. She reports improvement in leg cramps. She has a neurology appointment 12/05/2016 at 2:15 PM. She states she is scheduled to see the orthopedist tomorrow for a Synvisc injection. - Constitutional Vitals: Temp Pulse Resp BP Pulse Ox 98.3 F 85 16 150/65 97 12/02/16 07:08 12/02/16 15:32 12/02/16 15:32 12/02/16 15:32 12/02/16 15:32 Exam: She is sitting on the bedside commode and appears in no acute distress. Reviewed her medications and lab results. Internal Medicine: Result - Labs CBC & Chem 7: 11/30/16 04:55 11/30/16 04:55 Consult Discharge Plan - Plan Referrals: Agustin Whatley MD [Primary Care Provider] - 1 week (Patient also needs a follow up appointment made with motion graphics artist the first week of December.)
[2016-12-02] MEDS: *HR* Rivaroxaban 10 MG TABLET PO SCH (18:14)
[2016-12-02] MEDS: Insulin DETEMIR 100 UNIT/ML X5UNITS SQ SCH (22:01)
[2016-12-03 04:45] LABS: Basophils # 0.1 K/mcL (0.0-0.2); Basophils % 1.1 %; Eosinophils # 0.2 K/mcL (0.0-0.6); Eosinophils % 4.3 %; Hematocrit 28.5 % (35.3-44.9); Hemoglobin 8.6 g/dL (11.5-15.4); Immature Granulocytes % 0.2 % (0-4); Lymphocytes # 0.9 K/mcL (0.6-4.6); Lymphocytes % 18.4 %; Mean Corpuscular HGB Conc 30.2 g/dL (31.6-35.5); Mean Corpuscular Hemoglobin 26.2 pg (28.0-33.3); Mean Corpuscular Volume 86.9 fL (83.0-100.0); Mean Platelet Volume 10.3 fL (9.4-12.4); Monocytes # 0.7 K/mcL (0.0-1.3); Monocytes % 14.8 %; Neutrophils # 2.8 K/mcL (1.6-8.9); Platelet Count 241 K/mcL (140-400); Red Blood Count 3.28 M/mcL (3.82-4.97); Red Cell Distribution Width 23.2 % (11.5-14.5); Segmented Neutrophils % 61.2 %
[2016-12-03 04:59] LABS: BUN/Creatinine Ratio 30 (6-26); Blood Urea Nitrogen 21 mg/dL (7-20); Calcium 9.1 mg/dL (8.6-10.8); Carbon Dioxide 26 mEq/L (19-29); Chloride 98 mEq/L (98-109); Glucose 116 mg/dL (70-99); Magnesium 1.5 mg/dL (1.6-2.6); Osmolality,Calculated 280 (280-300); Potassium 4.7 mEq/L (3.5-4.5); Sodium 133 mEq/L (136-145); eGFR For African Americans > 60 (> 60); eGFR For Non-African Americans > 60 (> 60)
[2016-12-03 05:29] LABS: Anisocytosis 1+ (Not Present)
[2016-12-03 05:31] LABS: Platelet Estimate Normal (Normal); Polychromasia 1+ (Not Present)
[2016-12-03] MEDS: Ascorbic Acid 500 MG TABLET PO SCH (07:39)
[2016-12-03] MEDS: Diltiazem CD (24hr) 120 MG CAPSULE PO SCH (07:39)
[2016-12-03] MEDS: *HR* Metformin 500 MG TABLET PO SCH ×3 (07:40→18:28)
[2016-12-03] MEDS: Metoprolol XL (24 HR) Succ 25 MG TAB.ER.24H PO SCH (07:40)
[2016-12-03] MEDS: Gabapentin 300 MG CAPSULE PO SCH ×2 (07:40→21:48)
[2016-12-03] MEDS: Multivit/Ca/Min/Fe/FA 1 TAB TABLET PO SCH (07:40)
[2016-12-03] MEDS: Magnesium Oxide 400 MG TABLET PO SCH (07:40)
[2016-12-03] MEDS: GuaiFENesin/Dextromethorphan TABLET PO PRN ×2 (07:40→21:48)
[2016-12-03] MEDS: Vitamin B Complex/Vit C/Vit E 1 EACH TABLET PO SCH (07:40)
[2016-12-03] MEDS: *HR* HYDROcodone/Acet 5/325 mg TABLET PO PRN ×3 (07:41→18:31)
[2016-12-03] MEDS: Venlafaxine XR (24 HR) 150 MG CAP.ER.24H PO SCH (07:41)
[2016-12-03] MEDS: *HR* Pioglitazone 15 MG TABLET PO SCH (07:41)
[2016-12-03] MEDS: *HR* Rivaroxaban 10 MG TABLET PO SCH (18:28)
[2016-12-03] MEDS: Insulin DETEMIR 100 UNIT/ML X5UNITS SQ SCH (21:48)
[2016-12-04] MEDS: Magnesium Oxide 400 MG TABLET PO SCH ×2 (08:33→20:14)
[2016-12-04] MEDS: *HR* Pioglitazone 15 MG TABLET PO SCH (08:33)
[2016-12-04] MEDS: Multivit/Ca/Min/Fe/FA 1 TAB TABLET PO SCH (08:33)
[2016-12-04] MEDS: Vitamin B Complex/Vit C/Vit E 1 EACH TABLET PO SCH (08:33)
[2016-12-04] MEDS: Metoprolol XL (24 HR) Succ 25 MG TAB.ER.24H PO SCH (08:33)
[2016-12-04] MEDS: GuaiFENesin/Dextromethorphan TABLET PO PRN ×2 (08:33→20:14)
[2016-12-04] MEDS: Venlafaxine XR (24 HR) 150 MG CAP.ER.24H PO SCH (08:33)
[2016-12-04] MEDS: Ascorbic Acid 500 MG TABLET PO SCH (08:33)
[2016-12-04] MEDS: *HR* Metformin 500 MG TABLET PO SCH ×2 (08:33→16:49)
[2016-12-04] MEDS: Gabapentin 300 MG CAPSULE PO SCH ×2 (08:33→20:14)
[2016-12-04] MEDS: Diltiazem CD (24hr) 120 MG CAPSULE PO SCH (08:34)
[2016-12-04] MEDS: *HR* HYDROcodone/Acet 5/325 mg TABLET PO PRN ×3 (08:38→18:32)
[2016-12-04] MEDS: *HR* Rivaroxaban 10 MG TABLET PO SCH (16:49)
[2016-12-04] MEDS: Insulin DETEMIR 100 UNIT/ML X5UNITS SQ SCH (20:14)
[2016-12-05] MEDS: *HR* HYDROcodone/Acet 5/325 mg TABLET PO PRN ×3 (00:25→12:19)
[2016-12-05 07:11] VITALS: BP 126/78
[2016-12-05] MEDS: *HR* Pioglitazone 15 MG TABLET PO SCH (07:50)
[2016-12-05] MEDS: Diltiazem CD (24hr) 120 MG CAPSULE PO SCH (07:51)
[2016-12-05] MEDS: Vitamin B Complex/Vit C/Vit E 1 EACH TABLET PO SCH (07:51)
[2016-12-05] MEDS: Multivit/Ca/Min/Fe/FA 1 TAB TABLET PO SCH (07:51)
[2016-12-05] MEDS: *HR* Metformin 500 MG TABLET PO SCH (07:51)
[2016-12-05] MEDS: Ascorbic Acid 500 MG TABLET PO SCH (07:52)
[2016-12-05] MEDS: Magnesium Oxide 400 MG TABLET PO SCH (07:52)
[2016-12-05] MEDS: Metoprolol XL (24 HR) Succ 25 MG TAB.ER.24H PO SCH (07:52)
[2016-12-05] MEDS: Venlafaxine XR (24 HR) 150 MG CAP.ER.24H PO SCH (07:53)
[2016-12-05] MEDS: Gabapentin 300 MG CAPSULE PO SCH (07:53)
--- NOTE | 2016-12-05 10:56 | Discharge Summary ---
Date of Encounter: 12/05/16 Time of Encounter: 10:25 - Discharge Diagnosis (1) Atrial flutter Priority: Primary Status: Acute Qualifiers: Atrial flutter type: unspecified Qualified Code(s): I48.92 - Unspecified atrial flutter (2) Type 2 diabetes mellitus Priority: Secondary Status: Chronic Qualifiers: Diabetes mellitus complication status: with neurologic complications Diabetes mellitus complication detail: with polyneuropathy Diabetes mellitus long term care administrator insulin use: with custodial use Qualified Code(s): E11.42 - Type 2 diabetes mellitus with diabetic polyneuropathy; Z79.4 - detention (current) use of insulin (3) Pulmonary embolism Priority: Secondary Status: Acute Qualifiers: Pulmonary embolism type: other Chronicity: acute Acute cor pulmonale presence: without acute cor pulmonale Qualified Code(s): I26.99 - Other pulmonary embolism without acute cor pulmonale (4) Anemia Priority: Secondary Status: Chronic Qualifiers: Anemia type: iron deficiency Iron deficiency anemia type: unspecified iron deficiency Qualified Code(s): D50.9 - Iron deficiency anemia, unspecified (5) Leg cramps Priority: Secondary Status: Acute - Discharge Medications Prescriptions: HYDROcodone/Acet 5/325 mg [Gordon 5-325 mg] 1 - 2 tab PO Q4H PRN #20 tablet PRN Reason: Pain Home Medications: Cetirizine HCl [Zyrtec] 10 mg PO DAILY PRN 10/31/16 [History] Citalopram [CeleXA] 20 mg PO DAILY 10/31/16 [History] Esomeprazole Magnesium [Nexium] 40 mg PO DAILY 10/31/16 [History] Fluticasone Propionate Nasal [Flonase] 50 mcg NS DAILY PRN 10/31/16 [History] GuaiFENesin/Dextromethorphan [Mucinex Dm] 1 each PO BID PRN 10/31/16 [History] Loperamide HCl [Imodium A-D] 2 mg PO PER PKG DI PRN 10/31/16 [History] Losartan Potassium [Cozaar] 50 mg PO DAILY 10/31/16 [History] Multivitamin [Multi-Day Vitamins] 1 each PO DAILY 10/31/16 [History] Pioglitazone [Actos] 45 mg PO 0800 10/31/16 [History] Venlafaxine XR (24 HR) [Effexor Xr] 300 mg PO QAM 10/31/16 [History] Vitamin B Complex 1 each PO DAILY 10/31/16 [History] metFORMIN [Glucophage] 500 mg PO TIDWM 10/31/16 [History] Ascorbic Acid [Vitamin C] 500 mg PO DAILY #30 tablet 11/04/16 [Rx] Ferrous Sulfate 325 mg PO BIDWM #60 tablet 11/04/16 [Rx] Diltiazem CD (24hr) [Cardizem CD] 120 mg PO DAILY 30 Days 11/18/16 [Rx] Gabapentin [Neurontin] 300 mg PO BID #30 capsule 11/21/16 [Rx] Rivaroxaban [Xarelto] 20 mg PO DAILY #30 tablet 11/21/16 [Rx] HYDROcodone/Acet 5/325 mg [Gordon 5-325 mg] 1 - 2 tab PO Q4H PRN #20 tablet 12/05 [Rx] Insulin Glargine,Hum.rec.anlog [Lantus Solostar] 40 unit SQ HS #0 12/05/16 [Rx] Magnesium Oxide [Mag-Ox] 400 mg PO BID tab 12/05/16 [Rx] Metoprolol XL (24 HR) Succ [Toprol Xl] 50 mg PO DAILY 12/05/16 [Rx] Allergies/Adverse Reactions: Allergies Penicillins Adverse Reaction (Verified 10/31/16 14:05) Gastrointestinal Upset shellfish derived Adverse Reaction (Verified 10/31/16 14:05) Headache Tetracyclines Adverse Reaction (Verified 10/31/16 14:05) Rash Date of admission: 11/21/16 20:25 Primary care physician: Agustin Whatley MD Consults: 11/21/16 22:40 Consult to Occupational Therapy [CONS] Routine Comment: Reason for Consult: To evaluate plan,develop and impliment POC Consult to Physical Therapy [CONS] Routine Comment: Reason for Consult: To evaluate care,develop and impliment POC Consult to [facility] [CONS] Routine Reason for SW Consult: To evaluate plan,develop and impliment POC 11/29/16 17:02 Consult to Neurology [CONS] Routine Consulting Provider: Neurology [facility] Reason for Consult: n/t - Dr. Meraz Time Notified: 17:03 Call Completed: Yes - Patient Status Disposition: Transfer SNF Functional capacity at discharge: uses cane/walker - Discharge Instructions Follow Up With: Agustin Whatley MD [Primary Care Provider] - 1 week (pt going to [facility] - pt will see MD @ [facility]) Severo Butt MD [Non-Partnered Physician] - 12/13/16 11:20 am (Synvisc injection) Halley Burdick DO [Non-Partnered Physician] - 12/19/16 2:00 pm (chgronic sinuses) Abdi Lopez DO [Partnered Physician] - 12/25/16 2:00 pm (Follow up from [facility] visit for A-FIB Pt will see RICHARD Sue) Masha Walker MD [Partnered Physician] - 12/20/16 11:00 am (Synvisc injection) - Diet and Activity Activity: as per physical therapy Diet: diabetic diet Hospital course: Ms. Paris is a 66 year old female who was transferred to [facility] swing bed following her third admission at [facility] in the last month. She had had recurrent atrial flutter with RVR and had a fall at home. She was stabilized and admitted to [facility] swing bed for rehabilitation therapy prior to returning home. Initial orders were written by the discharging physicians at [facility]. I saw her on November 22 and performed a swing bed history and physical. She continued on Cardizem and Xarelto. Metoprolol dose was increased to 50 mg daily and tolerated well. Her heart rate and rhythm remained satisfactory on this regimen. She continued on Actos, Glucophage, Levemir, and Cozaar. Her blood sugars remain satisfactorily controlled. She was started on ferrous sulfate with vitamin C for iron deficiency anemia. This will be continued upon discharge. She received Synvisc injections in her knees on December [address] Butt. She had limited improvement with PT and OT. She will be seen by neurology the afternoon of December 05. Arrangements were made for her to be discharged to [facility] on December 05 for ongoing rehabilitation therapy. - Time Spent with Patient Total time spent providing and/or coordinating discharge services: - Constitutional Vitals: Temp Pulse Resp BP Pulse Ox 98.3 F 87 18 126/78 94 12/05/16 06:53 12/05/16 06:53 12/05/16 06:53 12/05/16 06:53 12/05/16 06:53
--- NOTE | 2016-12-05 11:19 | Physician Discharge Referral ---
ExtendedCare Referral Info Transfer To: [facility] Provider in Charge: Tez Provider in Charge after Transfer: PCP Institutional Level of Care: Skilled - Diagnosis (1) Atrial flutter Priority: Primary Status: Acute (2) Type 2 diabetes mellitus Priority: Secondary Status: Chronic (3) Pulmonary embolism Priority: Secondary Status: Acute (4) Anemia Priority: Secondary Status: Chronic (5) Leg cramps Priority: Secondary Status: Acute Prognosis: Fair Aware of Diagnosis: Patient, Family Aware of Prognosis: Patient, Family - Transfer Medications Prescriptions: HYDROcodone/Acet 5/325 mg [Bount[place] 5-325 mg] 1 - 2 tab PO Q4H PRN #20 tablet PRN Reason: Pain Home Medications: Cetirizine HCl [Zyrtec] 10 mg PO DAILY PRN 10/31/16 [History] Citalopram [CeleXA] 20 mg PO DAILY 10/31/16 [History] Esomeprazole Magnesium [Nexium] 40 mg PO DAILY 10/31/16 [History] Fluticasone Propionate Nasal [Flonase] 50 mcg NS DAILY PRN 10/31/16 [History] GuaiFENesin/Dextromethorphan [Mucinex Dm] 1 each PO BID PRN 10/31/16 [History] Loperamide HCl [Imodium A-D] 2 mg PO PER PKG DI PRN 10/31/16 [History] Losartan Potassium [Cozaar] 50 mg PO DAILY 10/31/16 [History] Multivitamin [Multi-Day Vitamins] 1 each PO DAILY 10/31/16 [History] Pioglitazone [Actos] 45 mg PO 0800 10/31/16 [History] Venlafaxine XR (24 HR) [Effexor Xr] 300 mg PO QAM 10/31/16 [History] Vitamin B Complex 1 each PO DAILY 10/31/16 [History] metFORMIN [Glucophage] 500 mg PO TIDWM 10/31/16 [History] Ascorbic Acid [Vitamin C] 500 mg PO DAILY #30 tablet 11/04/16 [Rx] Ferrous Sulfate 325 mg PO BIDWM #60 tablet 11/04/16 [Rx] Diltiazem CD (24hr) [Cardizem CD] 120 mg PO DAILY 30 Days 11/18/16 [Rx] Gabapentin [Neurontin] 300 mg PO BID #30 capsule 11/21/16 [Rx] Rivaroxaban [Xarelto] 20 mg PO DAILY #30 tablet 11/21/16 [Rx] HYDROcodone/Acet 5/325 mg [Bountiful 5-325 mg] 1 - 2 tab PO Q4H PRN #20 tablet 12/05 [Rx] Insulin Glargine,Hum.rec.anlog [Lantus Solostar] 40 unit SQ HS #0 12/05/16 [Rx] Magnesium Oxide [Mag-Ox] 400 mg PO BID tab 12/05/16 [Rx] Metoprolol XL (24 HR) Succ [Toprol Xl] 50 mg PO DAILY 12/05/16 [Rx] Allergies/Adverse Reactions: Allergies Penicillins Adverse Reaction (Verified 10/31/16 14:05) Gastrointestinal Upset shellfish derived Adverse Reaction (Verified 10/31/16 14:05) Headache Tetracyclines Adverse Reaction (Verified 10/31/16 14:05) Rash - Respiratory Orders Smoking Cessation: Smoking cessation has been advised. For more information, call the [place] Tobacco Quit Line at 5-254-PGUL-NOW. - Mobility Orders Ambulate - Rehabiliation Orders Rehab Potential: Fair Rehab Orders: Evaluation for Physical Therapy, Evaluation for Occupational Therapy - Diet Orders No Concentrated Sweets CERTIFICATION: I certify that the transfer of the above named patient to an Extended Care Facility is necessary for the continuing treatment of the diagnosis listed. The above information is true and accurate reflection of patient's current condition. Confidential - Redisclosure prohibited without a patient's written consent.
== END 2016-12-05 13:50 | DRG 945 ==
LOC: INPPIK 20:25
PROVIDERS: ADMIT Internal Medicine; ATTEND Internal Medicine